=== PATIENT | female | born 1940 | race Two or more races ===

== ENCOUNTER 2023-12-20 23:33 | Emergency (ER) | payer OTHER ==
[~2023-12-20] VITALS: Ht 160 cm; Wt 63.5 kg
[~2023-12-20 23:33] MED LIST: COZAAR50 MG PO; DICLOFENAC SODI75 MG PO; GLIMEPIRIDE2 MG PO; GLIMEPIRIDE4 MG; JANUMET 50-1,01 EACH PO; LIPITOR20 MG PO; [UNRECOGNIZED DRUG - OTHER]
[2023-12-21] MEDS ORDERED: METOCLOPRAMIDE HCL 5 MG/ML VIAL IM STA (00:32)
[2023-12-21] MEDS ORDERED: 0.9 % SODIUM CHLORIDE 500 ML IV STA (00:33)
[2023-12-21] MEDS ORDERED: FAMOtidine 10 MG/ML (4ML VIAL) IV PUSH STA (00:33)
[2023-12-21 01:00] LABS: HEMATOCRIT 38.9 % (36.0-45.00); MEAN CELL VOLUME 83.2 fL (80.00-100.00); MEAN CORPUSCULAR HEMOGLOBIN 27.9 pg (27.00-32.0); MEAN CORPUSCULAR HGB CONC 33.6 g/dl (32.0-36.0); PLATELET COUNT 239 K/uL (150-450); RED BLOOD COUNT 4.67 M/uL (4.00-6.00); RED CELL DISTRIBUTION WIDTH 14.4 % (11.5-14.5)
[2023-12-21 01:27] LABS: CALCIUM 9.1 mg/dL (8.5-10.1); CREATININE SERUM 0.67 mg/dL (0.55-1.02); GFR 83.85; POTASSIUM 4.77 mEq/L (3.5-5.1)
== END 2023-12-21 02:40 | disposition home or self-care (01) ==
LOC: ER 23:33
DX: R11.10 Vomiting, unspecified (principal); K21.9 Gastro-esophageal reflux disease without esophagitis; K29.70 Gastritis, unspecified, without bleeding; E11.43 Type 2 diabetes mellitus with diabetic autonomic (poly)neuropathy; K31.84 Gastroparesis; I10 Essential (primary) hypertension; E11.9 Type 2 diabetes mellitus without complications; Z79.84 Long term (current) use of oral hypoglycemic drugs; Z88.1 Allergy status to other antibiotic agents
CPT/HCPCS: 36415; 96365; 96366; 99282; J2765; J3490; J7042

== ENCOUNTER 2024-07-13 07:28 | Emergency (ER) | payer OTHER ==
[~2024-07-13] VITALS: Ht 160 cm; Wt 80.3 kg
[2024-07-13] MEDS ORDERED: ONDANSETRON HCL 2 MG/ML VIAL ONE (08:29)
[2024-07-13] MEDS ORDERED: FAMOTIDINE/PF 20 MG/2 ML VIAL ONE (08:29)
[2024-07-13] MEDS ORDERED: ONDANSETRON HCL 2 MG/ML VIAL IV STA (08:29)
[2024-07-13] MEDS ORDERED: 0.9 % SODIUM CHLORIDE 1,000 ML IV STA (08:29)
[2024-07-13] MEDS ORDERED: FAMOtidine 10 MG/ML (4ML VIAL) IV STA (08:30)
[2024-07-13 09:36] LABS: BASO % 0.2 % (0.1-1.2); EOS # 0.01 (0.04-0.54); EOS % 0.1 % (0.7-7.0); HEMATOCRIT 39.8 % (34.1-44.9); HEMOGLOBIN 12.5 g/dL (11.2-15.7); LYMPH # 1.04 (1.18-3.74); LYMPH % 12.7 % (19.3-53.1); MEAN CORPUSCULAR HEMOGLOBIN 26.5 pg (25.6-32.2); MONO # 0.16 (0.24-0.82); MONO % 1.9 % (4.7-12.5); NEUT # 6.96 (1.56-6.13); NEUT % 84.7 % (34.0-71.1); PLATELET COUNT 246 K/uL (163-369); RED BLOOD COUNT 4.72 M/uL (3.93-5.22); RED CELL DISTRIBUTION WIDTH 12.7 % (11.6-14.4)
[2024-07-13 10:13] LABS: ALBUMIN 3.7 gm/dL (3.4-5.0); BILIRUBIN TOTAL 0.5 mg/dL (0.3-1.2); BILIRUBIN,CONJUGATED 0.13 mg/dL (0.0-0.2); BILIRUBIN,UNCONJUGATED 0.37 mg/dL (0.0-0.6); CALCIUM 9.1 mg/dL (8.5-10.1); CREATININE SERUM 0.74 mg/dL (0.55-1.02); GFR 74.77; POTASSIUM 4.55 mEq/L (3.5-5.1); TOTAL PROTEIN 8.1 gm/dL (6.4-8.2)
[2024-07-13 10:59] LABS: URINE APPEARANCE Clear; URINE BILIRRUBIN Negative (NEGATIVE); URINE BLOOD Negative; URINE COLOR Dark Yellow; URINE GLUCOSE Negative (NEGATIVE); URINE KETONE Trace (NEGATIVE); URINE LEUKOCYTE Negative; URINE NITRATE Negative; URINE PROTEIN 30 (NEGATIVE)
[2024-07-13 11:02] LABS: URINE EPITHELIAL CELLS 7.4 uL (0.0-38.8); URINE RBC 11.4 uL (0.0-20.8)
[2024-07-13] MEDS ORDERED: MORPHINE SULFATE 2 MG/ML SYRINGE IV STA (11:03)
[2024-07-13 11:12] LABS: URINE CAST 0.58 uL (0.0-1.40); URINE WBC 0.9 uL (0.0-23.2)
[2024-07-13] MEDS ORDERED: DICYCLOMINE HCL 10 MG CAPSULE PO ONE (11:45)
[2024-07-13] MEDS ORDERED: DICYCLOMINE HCL 10 MG CAPSULE PO STA (11:47)
== END 2024-07-13 11:58 | disposition home or self-care (01) ==
LOC: ER 07:28
PROVIDERS: General Practice
DX: R10.13 Epigastric pain (principal); Z88.6 Allergy status to analgesic agent; I10 Essential (primary) hypertension; I20.89 Other forms of angina pectoris; K80.20 Calculus of gallbladder without cholecystitis without obstruction; E11.9 Type 2 diabetes mellitus without complications; Z79.84 Long term (current) use of oral hypoglycemic drugs
CPT/HCPCS: 36415; 76700; 96365; 96366; 99284; J2405; J3490; J7030

== ENCOUNTER 2024-10-12 09:34 | Emergency (ER) | payer OTHER ==
[~2024-10-12] VITALS: Ht 157.5 cm; Wt 77.1 kg
[2024-10-12] MEDS ORDERED: MORPHINE SULFATE 4 MG/ML VIAL IV ONE (10:15)
[2024-10-12] MEDS ORDERED: ACETAMINOPHEN 500 MG GEL..CAP PO STA (10:46)
== END 2024-10-12 22:07 | disposition home or self-care (01) ==
LOC: ER 09:34
DX: M54.50 Low back pain, unspecified (principal); R10.2 Pelvic and perineal pain; I10 Essential (primary) hypertension; E11.9 Type 2 diabetes mellitus without complications; Z79.84 Long term (current) use of oral hypoglycemic drugs; Z88.6 Allergy status to analgesic agent
CPT/HCPCS: 72131; 73521; 73551; 96365; 99284; J2270